=== PATIENT | female | born 1990 | race Caucasian/White ===

== ENCOUNTER 2020-10-06 17:05 | Outpatient (CLI) | payer OTHER, SELFPAY ==
[2020-10-06 17:53] LABS: SARS-CoV-2 Ag Negative (Negative)
[2020-10-07 18:20] LABS: SARS-CoV-2 RNA PCR Negative
== END 2020-10-06 17:06 | disposition home or self-care (01) ==
LOC: CHSLAB 17:12
PROVIDERS: PCP Internal Medicine; Visit Provider Internal Medicine
DX: Z20.822 Contact with and (suspected) exposure to COVID-19 (principal)
CPT/HCPCS: 87426; C9803; U0003; U0005

== ENCOUNTER 2020-10-24 18:12 | Outpatient (RCR) | payer OTHER, SELFPAY ==
[2020-10-25] MEDS: RHO(D) IMMUNE GLOBULIN 300 MCG SYRINGE IM (17:32)
== END 2020-10-31 08:29 | disposition home or self-care (01) ==
LOC: ANHOBOP 18:12
PROVIDERS: PCP Internal Medicine; Visit Provider Student in an Organized Health Care Education/Training Program
DX: Z29.13 Encounter for prophylactic Rho(D) immune globulin (principal); O36.0990 Maternal care for other rhesus isoimmunization, unspecified trimester, not applicable or unspecified; Z3A.00 Weeks of gestation of pregnancy not specified
CPT/HCPCS: 36415; 85461; 90384; 96372; J2790